=== PATIENT | male | born 1940 | race Caucasian/White ===

== ENCOUNTER 2018-09-03 07:13 | Day surgery (SDC) | payer MEDICARE ==
[2018-09-01 08:33] VITALS: BP 122/62
[2018-09-01 08:42] LABS: EOSINOPHILS % (AUTO) 1.5 % (0.0-8.0); LYMPHOCYTES % (AUTO) 4.2 % (21.0-51.0); MEAN CORPUSCULAR HEMOGLOBIN 48.7 pg (27.0-33.0); MEAN CORPUSCULAR HGB CONC 34.7 g/dL (32.0-36.0); MEAN CORPUSCULAR VOLUME 140.5 fL (79-99); MONOCYTES % (AUTO) 12.7 % (3.0-13.0); NEUTROPHILS % (AUTO) 79.6 % (40.0-77.0); PLATELET COUNT (AUTO) 597 K/uL (130-400); RED BLOOD CELL COUNT(AUTO) 1.92 MIL/uL (4.50-6.20); RED CELL DISTRIBUTION WIDTH 14.4 % (11.0-15.5); WHITE BLOOD COUNT (AUTO) 10.7 K/uL (4.8-10.8)
[2018-09-01 08:44] LABS: APPEARANCE,URINE Clear (CLEAR); BILIRUBIN,URINE Negative (NEGATIVE); COLOR,URINE Yellow (YELLOW); GLUCOSE, URINE (UA) Negative (NEGATIVE); KETONES,URINE Negative (NEGATIVE); LEUKOCYTE ESTERASE ,URINE Negative (NEGATIVE); NITRATE,URINE Negative (NEGATIVE); OCCULT BLOOD,URINE Negative (NEGATIVE); PROTEIN,URINE Negative (NEGATIVE)
[2018-09-01 09:01] LABS: INR 1.07 (0.85-1.15); PARTIAL THROMBOPLASTIN TIME 31.8 SEC (26.3-35.5); PROTHROMBIN TIME 11.2 SEC (9.6-11.6)
[2018-09-01 09:06] LABS: HEMOGLOBIN A1C 4.5 % (4.0-6.0)
[2018-09-01 09:10] LABS: ALBUMIN 3.4 g/dL (3.5-5.0); BILIRUBIN,TOTAL 0.9 mg/dL (0.2-1.0); CREATININE 1.8 mg/dL (0.5-1.5); POTASSIUM 4.3 mmol/L (3.5-5.1); T4 (THYROXINE) 5.5 mcg/dL (4.7-13.3); THYROID STIMULATING HORMONE 0.94 uIU/mL (0.36-3.74)
--- NOTE | 2018-09-02 10:25 | NUR ---
ABNORMAL LABS NOTIFIED ISABELLA BAEZ OF PT'S CREAT 1.8, BUN 42, RBC 1.92, HGB 9.4, HCT 27, PLT 597. ORDERS TO GIVE NS 100 ML/HR UPON ARRIVAL TO DAY PT UNTIL PT GOES TO PROCEDURE.
[~2018-09-03] VITALS: Ht 170.2 cm; Wt 65.5 kg
[2018-09-03] VITALS (9 sets, daily range): BP systolic 115–134; BP diastolic 55–70
[~2018-09-03 07:13] MED LIST: AREDS 2 PO; ASPI-555 PO; CARV12.511 PO; CLOP75TA32 PO; FURO-151 PO; HYDR500C2 PO; L.AC1CAP6 PO; LISI-617 PO; SODIUM CHLORIDE 0.9% 1000ML 1,000 ML IV SCH
[2018-09-03] MEDS ORDERED: SODIUM BICARB 50MEQ 50ML VIAL ONE (11:53)
[2018-09-03] MEDS ORDERED: IODIXANOL 320 MG/ML 100 ML VIAL ONE (11:53)
[2018-09-03] MEDS ORDERED: HEPARIN SODIUM 1000UNIT/ML 10ML VIAL ONE (11:53)
[2018-09-03] MEDS ORDERED: LIDOCAINE HCL 1% 20 ML VIAL ONE (11:53)
[2018-09-03] MEDS ORDERED: NITROGLYCERIN 5 MG/ML 10 ML VIAL IV ONE (11:53)
[2018-09-03] MEDS ORDERED: MIDAZOLAM HCL 1 MG/ML 2ML VIAL ONE (12:33)
[2018-09-03] MEDS ORDERED: MEPERIDINE-PF 25 MG/ML SYG ONE (12:33)
[2018-09-03] MEDS ORDERED: HYDRALAZINE HCL 20 MG/ML VIAL ONE (13:37)
[2018-09-03] MEDS ORDERED: SODIUM CHLORIDE 0.9% 1000ML 1,000 ML IV SCH (14:08)
--- NOTE | 2018-09-03 16:30 | NUR ---
PT TOLERATED PROCEDURE WELL, DRESSING TO LT GROIN D/I. NO C/O PAIN TO RLE. INSTRUCTED PT TO OUTPATIENT SCHEDULER MEDICATIONS AT HIS PHARMACY IN [place], ORDER HAS BEEN CALLED IN . PT STATES HE WILL HAVE NEIGHBOR CHECK IN ON HIM AT HOME AND HE HAS HIS CELL PHONE TO CALL FRIEND NEXT DOOR, AND 911 IF EMERGENCY ISSUE. PT VERBALIZED UNDERSTANDING. PT PLACED IN WHEELCHAIR,DRIVEN HOME BY FRIEND MR. GARY.
--- NOTE | 2018-09-03 16:55 | NUR ---
NURSING: PT REQUESTED TO HAVE PRESCRIPTION CALLED INTO PHARMACY, PT CANNOT DISTRICT MANAGER MEDICATIONS LATE, UNABLE TO DRIVE AT NIGHT. CALLED IN PRESCRIPTION TO [facility] ON [address] IN [place]. ORDER GIVEN TO ELVIRA DOUGHERTY. ORIGINAL COPY VOIDED IN CHART. INSTRUCTED PT TO DISTRICT MANAGER MEDICATIONS AT PHARMACY.
== END 2018-09-03 18:30 | disposition home or self-care (01) ==
LOC: DAH 07:13 → EDSTATUS 08:00 → DAH 18:30
PROVIDERS: ATTEND Internal Medicine Cardiovascular Disease
DX: I70.211 Atherosclerosis of native arteries of extremities with intermittent claudication, right leg (principal); I70.218 Atherosclerosis of native arteries of extremities with intermittent claudication, other extremity; I25.5 Ischemic cardiomyopathy; Z98.890 Other specified postprocedural states; I12.9 Hypertensive chronic kidney disease with stage 1 through stage 4 chronic kidney disease, or unspecified chronic kidney disease; N18.9 Chronic kidney disease, unspecified; Z79.01 Long term (current) use of anticoagulants; Z88.2 Allergy status to sulfonamides; Z68.21 Body mass index [BMI] 21.0-21.9, adult; I25.10 Atherosclerotic heart disease of native coronary artery without angina pectoris; D75.1 Secondary polycythemia; Z85.828 Personal history of other malignant neoplasm of skin; I70.0 Atherosclerosis of aorta; Z95.5 Presence of coronary angioplasty implant and graft
CPT/HCPCS: 36415 ×2; 37226; 37228; 71045; 75625; 75710; 80053; 80061; 81003; 83036; 84436; 84443; 84481; 85025; 85060; 85347; 85610; 85730; 93005; A4606; C1725 ×2; C1760; C1769 ×3; C1874; C1887; C1893; C1894; J0360; J1644 ×2; J3490 ×2; J7030; Q9967; J2175; J2250